=== PATIENT | male | born 1960 | race Caucasian/White ===

== ENCOUNTER → 2020-09-30 10:15 | Outpatient (CLI) | payer OTHER, MEDICARE, SELFPAY ==
--- NOTE | ~2020-09-30 | MR_ITS ---
EXAMINATION: MR shoulder RT wo con DATE: 09/30/2020 10:49 INDICATION: Right shoulder pain TECHNIQUE: Magnetic resonance imaging (MRI) of the right shoulder was performed without intravenous c ontrast. Sequences included axial PD-weighted FS FSE, coronal oblique PD-weighted FS FSE, coronal obl ique T2-weighted FS FSE, sagittal PD-weighted FS FSE, and sagittal T1-weighted SE. COMPARISON: None. FINDINGS: Coracoacromial arch: The acromion undersurface is curved in morphology (type II). The coracoacromial ligament is normal. M ild acromioclavicular osteoarthritis. Rotator cuff: Moderate supraspinatus tendinopathy and mild tendinopathy of the subscapularis and conjoined portion of the supraspinatus and infraspinatus tendons. There are small globular regions of decreased signal intensity along the distal aspect of the conjoined portion of the supraspinatus and infraspinatus ten dons suspicious for calcific tendinitis. The more posterior infraspinatus and teres minor tendons are normal. No rotator cuff tendon tear. Normal rotator cuff muscle bulk and signal. Biceps tendon, glenoid labrum and glenohumeral cartilage: Mild tendinopathy long head biceps tendon without discrete tear. Extensive labral tearing beginning a t the 1:00 position of the superior glenoid labrum and extending posteriorly and inferiorly to the 7: 00 position. Mild partial thickness cartilage loss with smooth chondral surface along the central to the cephalad aspect of the glenoid and along the apex and inferomedial aspect of the humeral head. Sm all marginal osteophytes are present along the anterior and inferior glenoid. Fluid: Physiologic amount of fluid in the glenohumeral joint. Small amount of fluid and mild synovitis in th e long head biceps tendon sheath consistent with mild bicipital tenosynovitis. No loose osteochondral bodies. No abnormal increased fluid signal in the subacromial/subdeltoid bursa to suggest bursitis. Bones: Bone alignment is normal. No fracture or pathologic marrow replacing process. IMPRESSION: 1. Mild to moderate tendinopathy without discrete tear of the supraspinatus and to lesser degree subs capularis and conjoined supraspinatus and infraspinatus tendons. Suggestion of mild calcific tendinit is at the distal conjoined portion of the tendon. Right shoulder radiographs could be obtained for co nfirmation as clinically indicated. 2. Mild right glenohumeral osteoarthritis with tear of the superior to posterior and inferior glenoid labrum. 3. Mild bicipital tenosynovitis with mild tendinopathy without discrete tear of the long head biceps tendon. 4. Mild acromioclavicular osteoarthritis. Reviewed, dictated and finalized at location [facility]. IMPRESSION: 1. Mild to moderate tendinopathy without discrete tear of the supraspinatus and to lesser degree subscapularis and conjoined supraspinatus and infraspinatus t endons. Suggestion of mild calcific tendinitis at the distal conjoined portion of the tendon. Right shoulder radiographs could be obtained for confirmation as clinically indicated. 2. Mild right glenohumeral osteoarthritis with tear of the superior to posterio r and inferior glenoid labrum. 3. Mild bicipital tenosynovitis with mild tendinopathy without discrete tear of the long head biceps tendon. 4. Mild acromioclavicular osteoarthritis.
== END ==
PROVIDERS: Visit Provider Internal Medicine
DX: S46.091A Other injury of muscle(s) and tendon(s) of the rotator cuff of right shoulder, initial encounter (principal); X58.XXXA Exposure to other specified factors, initial encounter; M19.011 Primary osteoarthritis, right shoulder; M75.21 Bicipital tendinitis, right shoulder
CPT/HCPCS: 73221

== ENCOUNTER 2024-09-19 08:41 | Outpatient (CLI) | payer MEDICARE, SELFPAY ==
--- NOTE | ~2024-09-19 | CT_ITS ---
EXAMINATION: CT lung screening DATE: 09/19/2024 09:08 INDICATION: nicotine dependence TECHNIQUE: Computed tomography (CT) of the chest was performed without intravenous contrast. Addition al 3D reconstructions utilizing coronal maximum intensity projection (MIP) were performed. Automated exposure control and iterative reconstruction technique were employed. The dose-length product was 21 3.12 mGy-cm. COMPARISON: None FINDINGS: 3 mm subpleural nodule in the right middle lobe. No other pulmonary nodules, pneumonia, pulmonary evin ma or pleural effusion. Heart size is normal. Atherosclerotic coronary artery calcification. Thoracic aorta is normal in caliber. No pathologically enlarged thoracic lymphadenopathy. Visualized upper ab domen is unremarkable. Moderate to severe thoracic spondylosis. IMPRESSION: 1. Lung-RADS category 2: Benign appearance or behavior. Continue annual screening with noncontrast lo w-dose chest CT in 12 months. Reviewed, dictated and finalized at location [facility]. [employer] IMPRESSION: 1. Lung-RADS category 2: Benign appearance or behavior. Continue annual screeni ng with noncontrast low-dose chest CT in 12 months.
--- NOTE | ~2024-09-19 | CT_ITS ---
Non-contrast CT scan of the Abdomen Clinical indication: Microscopic hematuria Technique: 2.5 mm axial scans were obtained through the abdomen without intravenous or oral contrast . Dose reduction technique was used on this scan by utilizing automated exposure control and iterativ e reconstruction technique. The dose-length product (DLP) was 512.45 mGy-cm. Findings: Images through the lung bases reveal no abnormalities. There is no evidence of renal or ureteral calculi. The kidneys and the ureters are nondilated. The liver, spleen, pancreas, gallbladder, and adrenals appear normal. There is no aortic aneurysm. Visualized bowel loops are unremarkable. No ascites. 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 Impression: No etiology for hematuria. Reviewed, dictated and finalized at [facility]. [employer]AMATION Impression: No etiology for hematuria.
== END 2024-09-19 08:42 | disposition home or self-care (01) ==
LOC: MICIMG 08:43
PROVIDERS: PCP Internal Medicine Geriatric Medicine; Visit Provider Internal Medicine Geriatric Medicine
DX: Z12.2 Encounter for screening for malignant neoplasm of respiratory organs (principal); F17.210 Nicotine dependence, cigarettes, uncomplicated; R31.29 Other microscopic hematuria
CPT/HCPCS: 71271; 74150